=== PATIENT | male | born 1960 | race Caucasian/White ===

== ENCOUNTER → 2023-10-27 | Outpatient (CLI) | payer BC | END | disposition home or self-care (01) | LOC: LAB SHORT 08:55 → LAB 08:55 | DX: E10.35 Type 1 diabetes mellitus with proliferative diabetic retinopathy (principal); E10.65 Type 1 diabetes mellitus with hyperglycemia | CPT/HCPCS: 36415; 83036 ==

== ENCOUNTER 2024-12-19 08:59 | Day surgery (SDC) | payer BC ==
[2024-12-19] VITALS (19 sets, daily range): BP systolic 98–156; BP diastolic 39–69
[~2024-12-19] VITALS: Ht 172.7 cm; Wt 71.7 kg
[~2024-12-19 08:59] MED LIST: ATOR20 PO; LISI5 PO; LYUMJEV KW100 UNIT/1; Lactated Ringer's 1,000 ML IV SCH; MULTI-VITAMIN1 EAC2 PO; TAMS.4ER PO
--- NOTE | 2024-12-19 09:43 | NUR ---
Ambulatory in Day Surgery WITH STEADY GAIT. PT DENIES NEED TO USE RESTROOM AT THIS TIME. History, Chart, Medications and Allergies reviewed before start of procedure. Pre-Op teaching done. Pt verbalizes understanding. Patient confirms NPO status and agrees with scheduled surgery. Patient States Post-Procedure ride home has been arranged WITH SPOUSE. ALL BELONGINGS PLACED IN PT BELONGING BAG BY PT. CALL LIGHT IN REACH. WARM BLANKET PROVIDED TO PT. PT UPDATED ON DELAY IN ROOM.
[2024-12-19] MEDS ORDERED: propofoL 40 ML IV ONE (10:06)
--- NOTE | 2024-12-19 10:24 | NUR ---
12/19/24 Quinn Sommers CONFIRMED AND REVIEWED H&P, MEDCICATIONS, ALLERGIES, MEDICAL HISTORY, RESPIRATORY HISTORY, VITAL SIGNS, 3-LEAD EKG, CONSENTS, AND PHYSICIAN ORDERS. PATIENT CONFIRMS NPO STATUS AND AGREES WITH SCHEDULED PROCEDURE. MONITOR INTACT WITH CONTINUOUS PULSE OXIMETRY, CAPNOGRAPHY, 3-LEAD EKG, INTERMITTENT BP. SUPPLEMENTAL O2 TO BE TITRATED THROUGHOUT PROCEDURE TO MAINTAIN O2 SATURATION ABOVE 90%. PATIENT DETERMINED TO BE ASA APPROPRIATE FOR PROPOFOL SEDATION PRIOR TO START OF PROCEDURE BY DR. HOOKS
--- NOTE | 2024-12-19 11:07 | NUR ---
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 IVDC'D
== END 2024-12-19 23:00 | disposition home or self-care (01) ==
LOC: ORSCMMR 08:59 → ORD 09:30 → ORSCMMR 23:00
PROVIDERS: Internal Medicine Gastroenterology
PROC: 0DJD8ZZ Inspection of Lower Intestinal Tract, Via Natural or Artificial Opening Endoscopic (ICD-10-PCS; principal; 2024-12-19 09:30)
DX: Z12.11 Encounter for screening for malignant neoplasm of colon (principal); Z80.0 Family history of malignant neoplasm of digestive organs; K57.30 Diverticulosis of large intestine without perforation or abscess without bleeding; E10.9 Type 1 diabetes mellitus without complications; Z96.41 Presence of insulin pump (external) (internal); E78.00 Pure hypercholesterolemia, unspecified; Z79.899 Other long term (current) drug therapy
CPT/HCPCS: 82947; J2704; J7120